=== PATIENT | female | born 1975 | race Caucasian/White ===

== ENCOUNTER → 2023-02-01 | Outpatient (CLI) | payer BC ==
[~2023-02-01] MED LIST: ACHD5005 PO; ACYC-109 PO; CYCL10TA9 PO; FERR325T74 PO; HYDR-707 PO; IBP800T PO; ONDA-42 PO; OXYC-12 PO; PRD20T PO; PREN1COM11 PO
--- NOTE | 2023-02-01 11:53 | Diagnostic Imaging Report ---
INDICATION: Routine screening. COMPARISON: 02/28/2016. TECHNIQUE: 2D and 3D bilateral screening mammography was performed with CAD. FINDINGS: Scattered fibroglandular densities are identified bilaterally. The parenchymal pattern is stable. No mass or malignant-appearing microcalcifications are seen. The axillae are unremarkable. IMPRESSION: No mammographic features suspicious for malignancy are identified. ACR BI-RADS Category 1: Negative. Result letter will be mailed to the patient. Note: At least 10% of breast cancer is not imaged by mammography. Dictated by: Dictated on workstation # [id number]
== END ==
LOC: RAD 09:01
PROVIDERS: ATTEND Family Medicine
DX: Z12.31 Encounter for screening mammogram for malignant neoplasm of breast (principal)
CPT/HCPCS: 77063; 77067